=== PATIENT | male | born 1935 | race Caucasian/White ===

== ENCOUNTER → 2017-07-17 | Outpatient (CLI) | payer OTHER, MEDICARE ==
[~2017-07-17] VITALS: Ht 175.3 cm; Wt 102.5 kg
[~2017-07-17] MED LIST: ACETAMINOPHEN325 M1 PO; ACYCLOVIR 400400 M1 PO; ADULT LOW DOSE81 MG PO; ALEVE220 MG PO; ALLOPURINOL 30300 M2 PO; AMBIEN 10 MG TA10 MG PO; AMBIEN CR 6.26.25 MG PO; BACTRIM DS TAB1 EACH; BACTRIM DS TAB1 EACH PO; CARVEDILOL12.5 MG PO; COLACE 100 MG100 MG PO; COUMADIN 2 MG TA2 M1 PO; COUMADIN 5 MG TA5 M1 PO; COUMADIN7.5 MG PO; DIFLUCAN; DIFLUCAN150 MG PO; DIPHEN25 M1 PO; ENOXAPARIN40 MG/0.1 INJECTION; LEVOFLOXACIN250 MG PO; LISINOPRIL20 MG PO; LISINOPRIL40 MG PO; NEUPOGEN480 MCG/0. SUBQ; NEURONTIN 300300 M1 PO; NIFEDIPINE ER60 M1 PO; NIFEDIPINE ER90 M1 PO; NORCO 5-325 TA1 EACH; NORCO 7.5-3251 EACH PO; SENNA CONCENTR8.6 MG; TRAMADOL 50 MG50 MG PO; TRAZODONE HCL50 MG PO; ULTRAM 50MG TAB50 MG; ZOCOR 20 MG TAB20 M1 PO; ZOFRAN4 MG PO
--- NOTE | ~2017-07-17 | HPC ---
[facility] [address] [place] [address] PAIN MANAGEMENT CONSULTATION Name: JOANNA PITTMAN Room #: REG [facility].#: [id number] Admission: 07/17/17 Attend Phys: Dk Amin MD Discharge: Date of : 31 Report #: [id number] THIS REPORT FOR: //name// CC: Wilver Amin DATE OF SERVICE: 07/17/2017 Follow up visit for low back pain with mild radiculopathy. The patient returns to pain clinic for an epidural injection. As his most recent dictation indicates he has responded very favorably to injections at infrequent intervals. We were unable to give him an injection at last visit due to his use of Coumadin. He has discontinued it for 5 days and has an INR of 1.0. I will ask him to reinitiate that today and can take it back on his regular intervals. He takes it for DVT that was diagnosed in 2009. There has been no change in the symptoms since his last visit. His back pain that interferes with walking and equilibrium. He is very active for age, hopes to play golf later this week and his discomfort in the back has been limiting even that pleasurable activity. He is not taking any opioid or stronger pain medications, would like to avoid them. Medications were reviewed. INR was reviewed. The procedure was explained and the patient is anxious to proceed. PHYSICAL EXAMINATION: Pleasant, alert and oriented. Blood pressure today is 144/75, heart rate 59, BMI is 33.4. Pain across the low back is noted and some mild antalgic features to his gait. IMPRESSION: Chronic intractable low back pain with mild radiculopathy. PROCEDURE: Lumbar epidural steroid injection at L4-L5 under fluoroscopic guidance. PROCEDURE NOTE: The patient was taken to the fluoroscopic suite, placed prone, skin prepped with ChloraPrep. Skin anesthetized over the L4-L5 interspace. A 20-gauge Tuohy epidural needle advanced in the midline. No blood or CSF aspirated. 1 mL of Omnipaque injected, good spread of dye observed in the epidural space followed by 3 mL of 0.5% lidocaine mixed with 80 mg of triamcinolone. He tolerated the procedure well and was taken to recovery room [address] [address] PAIN MANAGEMENT CONSULTATION Name: JOANNA PITTMAN Room #: REG [facility].#: [id number] Admission: 07/17/17 Attend Phys: Dk Amin MD Discharge: Date of : 31 Report #: [id number] for observation. We plan to keep him for a short time and then discharge and a followup visit planned on an as needed basis. <ELECTRONICALLY SIGNED> By: Dk Amin MD 07/19/17 1551 [id number] Dk Amin MD /nt
[2017-07-17 08:07] VITALS: BP 144/75
== END | disposition home or self-care (01) ==
LOC: PAIN 05:56
DX: M54.16 Radiculopathy, lumbar region (principal); Z68.33 Body mass index [BMI] 33.0-33.9, adult

== ENCOUNTER → 2019-02-07 | Outpatient (CLI) | payer OTHER, MEDICARE ==
[~2019-02-07] VITALS: Ht 175.3 cm; Wt 95.6 kg
--- NOTE | ~2019-02-07 | HPC ---
[facility] [address] [address] PAIN MANAGEMENT CONSULTATION Name: JOANNA PITTMAN Room #: [facility] [id number] Admission: 02/07/19 ������������������ Attend Phys: Dk Amin MD Discharge: ������������������ Date of : 31 Report #: [id number] THIS REPORT FOR: //name// CC: Wilver Amin DATE OF SERVICE: 02/07/2019 CHIEF COMPLAINT: Aching sensation across the low back. HISTORY OF PRESENT ILLNESS: The patient is a pleasant 83-year-old who I saw many years ago. He came today to discuss what he describes as an ache. He does not call it pain. When he is active, he has pain across his low back. At 83, he is quite active. He plays golf routinely and walks 1-1/2 miles a day. When he is performing these activities, he has no pain. The pain often times, however, occurs later in the day or after he has been sitting for a while. Occasionally, he has a radiating pain into the right calf and the top of his foot, which we had treated previously with an epidural, but this is no longer a prominent complaint. Most of his pain is mechanical across the low back. MEDICATIONS: Reviewed and reconciled. They include trazodone, Coumadin, lisinopril, simvastatin and carvedilol. ALLERGIES: None. 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 He has had a knee replacement in 2012 and is under treatment for hypertension and high cholesterol. 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 SOCIAL HISTORY: He is an active sharp 83-year-old who is independent in all activities of daily living. He enjoys golf. Denies use of tobacco or alcohol. He is retired from [email or web address] where he worked for many years until it closed. PHYSICAL EXAMINATION: VITAL SIGNS: He is 5 feet 9 inches, 210 pounds, BMI 31.1. EXTREMITIES: He moves independently from sitting to standing, walks easily with a stable gait. He has slight weakness in plantar flexion of the right foot, which he describes as a club foot sensation. This is mild. NECK: Supple. CHEST: Clear to auscultation. CARDIAC: His cardiac rhythm is regular, with no audible murmur. ABDOMEN: Soft, with no organomegaly. MUSCULOSKELETAL: Reveals good alignment of the cervical, thoracic and lumbar [address] [address] PAIN MANAGEMENT CONSULTATION Name: JOANNA PITTMAN Room #: REG [facility]#: [id number] Admission: 02/07/19 ������������������ Attend Phys: Dk Amin MD Discharge: ������������������ Date of : 31 Report #: [id number] spine. Range of motion is slightly reduced, consistent with age. He has tenderness across his low back. Back extension reproduces a mild aching sensation for him, which is very minimum today. Straight leg raising is negative for radiculopathy. Strength in the lower extremities is judged to be normal in all respects, except for a mild dorsiflexion of the right foot. It should be noted that he was treated many years ago for pain that followed in the L4-L5 distribution. His weakness is not enough to markedly affect his gait. IMPRESSION: Chronic low back pain with spondylosis. Mild radiculopathy. He may have some slight weakness in the L5 distribution of the right leg. RECOMMENDATIONS: He is not a candidate at this point for an injection therapy. I have encouraged him to remain as active as possible because there was mostly reassurance and he was discharged without treatment. ��������������������������������������������� ���������������������������������������� By: ��������������������������������������������� 1805 [id number] Dk Amin MD /nt
[2019-02-07 09:32] VITALS: BP 154/74
--- NOTE | 2019-02-07 09:45 | NUR ---
Pain Clinic Assessment: 1. History of Osteoarthritis: DENIES History of Rheumatoid Arthritis: DENIES 2. Height: 5 ft. 9 in. 175.3 cm. Weight: 210.8 lb. oz. 95.618 kg. Patient's BMI: 31.1 3. Vital Signs: BP: 154/74 Pulse: 63 Resp: 16 Temp: 02 Sat: 98 ECG Mon: 4. Pain Intensity: 3-4 5. Fall Risk: Dizziness: N Needs help standing or walking: N Fallen in the last 3 months: N Fall risk comments: 6. Patient on Blood Thinner: Warfarin (Coumadin) 7. History of Hypertension: Y 8. Opioid Therapy greater than 6 weeks: N Opiate Contract Signed: 9. Risk Assessment Tool Provided: LOW RISK 0/3 10. Functional Assessment Tool: 11. Recreational Drug Use: Never Drug Type: Tobacco Use: Never Smoker Tobacco Type: Amount or Packs/day: How Many Years: Alcohol Use: No Frequency: Quant:
== END ==
LOC: PAIN 06:52
DX: M47.26 Other spondylosis with radiculopathy, lumbar region (principal); G89.29 Other chronic pain; E78.00 Pure hypercholesterolemia, unspecified; I10 Essential (primary) hypertension; Z79.01 Long term (current) use of anticoagulants; Z79.899 Other long term (current) drug therapy

== ENCOUNTER → 2021-03-25 | Outpatient (CLI) | payer OTHER, MEDICARE ==
[~2021-03-25] VITALS: Ht 175.3 cm; Wt 99.8 kg
[2021-03-25 09:33] VITALS: BP 144/75
--- NOTE | 2021-03-25 09:44 | NUR ---
Pain Clinic Assessment: 1. History of Osteoarthritis: DENIES History of Rheumatoid Arthritis: DENIES 2. Height: 5 ft. 9 in. 175.3 cm. Weight: 220.0 lb. oz. 99.792 kg. Patient's BMI: 32.5 3. Vital Signs: BP: 144/75 Pulse: 67 Resp: 18 Temp: 02 Sat: 97 ECG Mon: 4. Pain Intensity: 4 5. Fall Risk: Dizziness: N Needs help standing or walking: N Fallen in the last 3 months: N Fall risk comments: 6. Patient on Blood Thinner: Warfarin (Coumadin) 7. History of Hypertension: Y 8. Opioid Therapy greater than 6 weeks: N Opiate Contract Signed: 9. Risk Assessment Tool Provided: LOW RISK 0/3 10. Functional Assessment Tool: 11. Recreational Drug Use: Never Drug Type: Tobacco Use: Never Smoker Tobacco Type: Amount or Packs/day: How Many Years: Alcohol Use: No Frequency: Quant:
== END ==
LOC: PAIN 06:56
PROVIDERS: ATTEND Anesthesiology Pain Medicine
DX: E87.8 Other disorders of electrolyte and fluid balance, not elsewhere classified (principal); I10 Essential (primary) hypertension; Z79.01 Long term (current) use of anticoagulants; Z79.899 Other long term (current) drug therapy; Z79.891 Long term (current) use of opiate analgesic